=== PATIENT | female | born 1955 | race Caucasian/White ===

== ENCOUNTER → 2017-11-19 | Outpatient (CLI) | payer MEDICARE | END | disposition home or self-care (01) | LOC: PCVCIMAG 10:25 | DX: R55 Syncope and collapse (principal); R00.0 Tachycardia, unspecified; I49.9 Cardiac arrhythmia, unspecified; R06.00 Dyspnea, unspecified; R00.2 Palpitations | CPT/HCPCS: 93306; 93880 ==

== ENCOUNTER → 2018-08-29 | Outpatient (CLI) | payer MEDICARE | END | disposition home or self-care (01) | LOC: PCVCCLINIC 11:07 | PROVIDERS: ATTEND Internal Medicine Cardiovascular Disease | DX: I10 Essential (primary) hypertension (principal); I47.1 Supraventricular tachycardia; R60.9 Edema, unspecified; I95.1 Orthostatic hypotension; J45.909 Unspecified asthma, uncomplicated; E78.00 Pure hypercholesterolemia, unspecified | CPT/HCPCS: 93005; G0463 ==

== ENCOUNTER → 2019-03-05 | Outpatient (CLI) | payer MEDICARE ==
[~2019-03-05] MED LIST: REGADENOSON 0.4 MG/5 ML DISP.SYRIN. IV ONE
--- NOTE | 2019-03-06 18:08 | PCVCIMAG ---
APPROVED REPORT Imaging Protocol: Rest Tc-99m/Stress Tc-99m 1 day Study performed: 03/05/2019 13:50:05 Indication: Syncope, PSVT Patient Location: Out-Patient Stress Nurse: Nikkie Pete RN, Cristiane Jade RN [place] Tech:Lennie Adolfo [facility] Ht: 5 ft 4 in Wt: 206 lbs BSA: 1.98 m2 HR: 67 bpm BP: 125/67 mmHg BMI: 35.3 Rhythm: Normal Sinus Rhythm, nonspecific ST-T abnormalities Medical History Medical History: HTN Medications: Albuterol, Lasix, Aldactone Allergies: Many - none relevant to this exam. Cardiac Risk Factors: Age Pretest Chest Pain Characteristics: No chest pain Exercise History: Physically active Resting Data Rest SPECT myocardial perfusion imaging was performed in supine position 45 minutes following the intravenous injection of 10.4 mCi of Tc-99m Sestamibi. Time of rest injection: 1310 Administration Route: IV Administration Site: Left Wrist Pharmacologic Stress Pharmacologic stress test was performed by injecting Regadenoson 0.4 mg IV push over 10-15 seconds immediately followed by the intravenous injection of 30.2 mCi of Tc-99m Sestamibi. Time of stress injection: 1445 Date: 03/05/2019 Administration Route: IV Administration Site: Left Wrist Gated Stress SPECT was performed 45 minutes after stress injection. The images were gated to evaluate regional wall motion and calculate left ventricular ejection fraction. Stress Test Details Stress Test: Pharmacologic stress testing performed using 0.4 mg of regadenoson per 5 mL given IV over 10 seconds. Reason for pharmacologic stress test: back issues. HRMax Heart Rate (APMHR): 155 bpm Resting HR: 67 bpmTarget HR (85% APMHR): 131 bpm Max HR Achieved: 86 bpm % of APMHR: 55 Recovery HR: 77 bpm BP Resting BP: 125/67 mmHg Max BP: 130/60 mmHg Recovery BP: 114/59 mmHg ECG Resting ECG: Normal Sinus Rhythm, nonspecific ST-T abnormalities Stress ECG: Normal Sinus Rhythm, nonspecific ST-T abnormalities Arrhythmia: None Recovery ECG: Normal Sinus Rhythm, nonspecific ST-T abnormalities Clinical Reason for Termination: Completed protocol Stress Symptoms: Abdominal discomfort, Lightheaded Exercise duration: 0 min 55 sec Symptoms resolved with caffeine. Stress ECG Conclusion ECG: Non-ischemic Study Quality Study: Good Study Data Post stress, the left ventricular ejection was 83%.. SSS: 1 SRS: 7 SDS: 0 TID = 0.82. Perfusion No evidence of stress induced ischemia or prior myocardial infarction. Wall Motion Normal left ventricular size and function with no regional wall motion abnormalities. Nuclear Conclusion No evidence of stress induced ischemia or prior myocardial infarction. Normal left ventricular size and function with no regional wall motion abnormalities. Post stress, the left ventricular ejection was 83%. No prior study available for comparison. Interpreted by: Matias Kay MD Electronically Approved: 03/05/2019 19:58:47 <Conclusion> ECG: Non-ischemic
== END | disposition home or self-care (01) ==
LOC: PCVCIMAG 12:38
PROVIDERS: ATTEND Internal Medicine Cardiovascular Disease
DX: I47.1 Supraventricular tachycardia (principal); E78.00 Pure hypercholesterolemia, unspecified; F32.9 Major depressive disorder, single episode, unspecified; R53.83 Other fatigue; Z87.898 Personal history of other specified conditions; Z82.49 Family history of ischemic heart disease and other diseases of the circulatory system; Z86.79 Personal history of other diseases of the circulatory system
CPT/HCPCS: 78452; 93017; A9500; G0463; J2785

== ENCOUNTER → 2019-08-06 | Outpatient (CLI) | payer MEDICARE | END | disposition home or self-care (01) | LOC: PCVCCLINIC 11:00 | PROVIDERS: ATTEND Internal Medicine Cardiovascular Disease | DX: E78.00 Pure hypercholesterolemia, unspecified (principal); E78.5 Hyperlipidemia, unspecified; Z86.79 Personal history of other diseases of the circulatory system; Z87.898 Personal history of other specified conditions; Z82.49 Family history of ischemic heart disease and other diseases of the circulatory system; Z90.710 Acquired absence of both cervix and uterus; Z96.653 Presence of artificial knee joint, bilateral; Z88.0 Allergy status to penicillin; Z88.5 Allergy status to narcotic agent; Z88.7 Allergy status to serum and vaccine; Z88.8 Allergy status to other drugs, medicaments and biological substances; Z91.041 Radiographic dye allergy status; Z79.899 Other long term (current) drug therapy | CPT/HCPCS: 36415; 80061; 93005; G0463 ==